=== PATIENT | male | born 1935 | race Caucasian/White ===

== ENCOUNTER 2019-07-10 19:05 | Inpatient (IN) | payer MEDICARE, BC ==
--- NOTE | 2019-07-10 19:14 | EDM.PDOC ---
ED HPI GENERAL MEDICAL PROBLEM - General Chief Complaint: Abdominal Pain Stated Complaint: ABD pain, weakness Time Seen by Provider: 07/10/19 19:07 Source of Information: Reports: Patient History Limitations: Reports: No Limitations - History of Present Illness INITIAL COMMENTS - FREE TEXT/NARRATIVE: This patient is an 84 year old male that presents to the ER. Patient is with son. I saw this patient in the clinic yesterday. Patient reports that about 2 1/ 2 weeks he has been having abdominal pain that comes and goes. Patient reports that when he has it, it makes him cry. Patient reports the pain last several minutes then resolved completely. The patient yesterday in clinic had ct abd/ pelvis with contrast and labs that were all unremarkable. Patient got Morphine/ Zofran and NS during his clinic visit and was pain free at discharge. We discussed a possible admit, but he was pain free. So, was discharged home. Patient returns today due to pain coming back again today and patient is requesting admit due to the pain that keeps coming. Duration: Week(s): (2 1/2), Intermittent Location: Reports: Abdomen Quality: Reports: Sharp Severity: Moderate Improves with: Reports: None Worsens with: Reports: None Associated Symptoms: Reports: Weakness (general). Denies: Confusion, Chest Pain , Cough, cough w sputum, Diaphoresis, Fever/Chills, Headaches, Loss of Appetite , Malaise, Nausea/Vomiting, Rash, Seizure, Shortness of Breath, Syncope Left Lower Abdominal Pain Score (Numeric/FACES): 5 - Related Data Allergies Allergy/AdvReac Type Severity Reaction Status Date / Time Penicillins Allergy Syncope Verified 07/10/19 19:15 Home Meds: Home Meds Multivitamin [Multivitamins] 1 tab PO DAILY 11/11/18 [History] Timolol [Betimol] 1 drop EYEBOTH ASDIRECTED 11/11/18 [History] gemfibroziL [Gemfibrozil] 600 mg PO DAILY 11/11/18 [History] Aspirin 325 mg PO DAILY 07/09/19 [History] Aspirin 325 mg PO DAILY 07/10/19 [History] Calcium Carbonate/Vitamin D3 [Calcium 600 + Vit D Tablet] 1 tab PO DAILY [History] Cholecalciferol (Vitamin D3) [Vitamin D3] 1 cap PO DAILY 07/10/19 [History] Ondansetron [Zofran ODT] 1 tab SL Q4H PRN 07/10/19 [History] fentaNYL [Duragesic] 50 mcg TRDERM Q72H 07/10/19 [History] Past Medical History Cardiovascular History: Reports: High Cholesterol - Past Surgical History GI Surgical History: Reports: Hernia, Inguinal Social & Family History - Caffeine Use Caffeine Use: Reports: Coffee - Living Situation & Occupation Living situation: Reports: , with Spouse Occupation: Retired ED ROS GENERAL - Review of Systems Review Of Systems: See Below Constitutional: Reports: No Symptoms HEENT: Reports: No Symptoms Respiratory: Reports: No Symptoms Cardiovascular: Reports: No Symptoms Endocrine: Reports: No Symptoms GI/Abdominal: Reports: Abdominal Pain. Denies: Nausea, Vomiting : Reports: No Symptoms Musculoskeletal: Reports: No Symptoms Skin: Reports: No Symptoms Neurological: Reports: No Symptoms Psychiatric: Reports: No Symptoms Hematologic/Lymphatic: Reports: No Symptoms Immunologic: Reports: No Symptoms ED EXAM, GI/ABD - Physical Exam Exam: See Below Exam Limited By: No Limitations General Appearance: Alert Course - Vital Signs Last Recorded V/S: Last Vital Signs Temp 97.0 F 07/10/19 20:00 Pulse 71 07/10/19 20:00 Resp 18 07/10/19 20:00 BP 124/61 07/10/19 20:00 Pulse Ox 94 L 07/10/19 20:00 - Orders/Labs/Meds Labs: Laboratory Tests 07/10/19 07/10/19 Range/Units 15:45 15:45 WBC 4.7 L (5.0-10.0) 10^3/uL RBC 4.23 L (4.50-6.00) 10^6/uL Hgb 13.1 L (14.0-18.0) g/dL Hct 39.9 L (40.0-54.0) % MCV 94.3 H (82.0-94.0) fL MCH 31.0 (27.0-32.0) pg MCHC 32.8 L (33.0-38.0) g/dL RDW Coeff of Cnidy 13.3 (11.0-15.0) % Plt Count 209 (150-400) 10^3/uL Neut % (Auto) 68.3 (35-85) % Lymph % (Auto) 18.3 (10-55) % [place] % (Auto) 9.4 (0-16) % Eos % (Auto) 3.4 (0-5) % Baso % (Auto) 0.6 (0-3) % Neut # (Auto) 3.21 (1.80-7.00) 10^3/uL Lymph # (Auto) 0.86 L (1.00-4.80) 10^3/uL [place] # (Auto) 0.44 (0.00-0.80) 10^3/uL Eos # (Auto) 0.16 (0.00-0.45) 10^3/uL Baso # (Auto) 0.03 10^3/uL Sodium 141 (136-145) mEq/L Potassium 4.5 (3.5-5.0) mEq/L Chloride 106 (98-106) mEq/L Carbon Dioxide 27 (21-32) mmol/L BUN 19 H (7-18) mg/dL Creatinine 0.8 (0.7-1.3) mg/dL Est Cr Clr Drug Dosing 60.98 mL/min Estimated GFR (MDRD) > 60 (>=60) mL/min Glucose 93 (75-99) mg/dL Calcium 9.2 (8.4-10.1) mg/dL Total Bilirubin 0.4 (0.0-1.0) mg/dL AST 23 (15-37) U/L ALT 22 (12-78) U/L Alkaline Phosphatase 85 (46-116) U/L C-Reactive Protein < 0.2 L (0.2-0.8) mg/dL Total Protein 6.4 (6.4-8.2) g/dL Albumin 3.5 (3.4-5.0) g/dL - Re-Assessments/Exams Free Text/Narrative Re-Assessment/Exam: 07/10/19 19:32 I will admit this patient, recommend possible gallbladder US on Friday when available. Allow Dr. Abernathy to see this patient and determine what other test if any are needed. Departure - Departure Time of Disposition: 19:08 Disposition: Refer to Observation Condition: Fair Clinical Impression: Abdominal pain Qualifiers: Abdominal location: generalized Qualified Code(s): R10.84 - Generalized abdominal pain - Discharge Information *PRESCRIPTION DRUG MONITORING PROGRAM REVIEWED*: Not Applicable *COPY OF PRESCRIPTION DRUG MONITORING REPORT IN PATIENT MARCUS: Not Applicable Sepsis Event Note - Focused Exam Vital Signs: Vital Signs Temp Pulse Resp BP Pulse Ox 07/10/19 19:07 96.5 F L 65 20 112/73 98 Date Exam was Performed: 07/10/19 Time Exam was Performed: 20:31 - Assessment/Plan Plan: PLEASE SEE RN NOTE FOR PFSH. PLEASE USE ER H&P ADMIT H&P.
[2019-07-10 19:30] LABS: CHLORIDE,CL 106 mEq/L (98-106); SODIUM,NA 141 mEq/L (136-145)
[2019-07-10] MEDS ORDERED: Docusate Sodium 100 MG Cap PO PRN (20:41)
[2019-07-10] MEDS ORDERED: Morphine 2 MG/ML Syringe IVPUSH PRN (20:41)
[2019-07-10] MEDS ORDERED: Timolol Maleate 0.5% Ophth Soln 5 ML Bottle EYEBOTH SCH (20:45)
[2019-07-10] MEDS ORDERED: fentaNYL 50 MCG/HR Transdermal Patch TRDERM SCH (21:00)
[2019-07-10] MEDS: Enoxaparin 40 MG/0.4 ML Syringe SUBCUT SCH (21:26)
[2019-07-11 07:17] LABS: CHLORIDE,CL 107 mEq/L (98-106); SODIUM,NA 142 mEq/L (136-145)
[2019-07-11] MEDS: Multivitamin Tab PO SCH (07:41)
[2019-07-11] MEDS: Calcium Carbonate/Vitamin D3 1250 MG-200 Unit Tab PO SCH (07:41)
[2019-07-11] MEDS: Cholecalciferol (Vitamin D3) 25 MCG Tab PO SCH (07:41)
[2019-07-11] MEDS: Aspirin 325 MG Tab.EC PO SCH (07:41)
[2019-07-11] MEDS: GEMFIBROZIL 600 MG PO SCH (07:42)
[2019-07-11] MEDS ORDERED: Gemfibrozil 600 MG Tab PO SCH (08:00)
[2019-07-11] MEDS ORDERED: Sodium Chloride 0.9% 500 ML IV ONE (10:30)
--- NOTE | 2019-07-11 10:42 | PCM.PN ---
- General Info Date of Service: 07/11/19 Functional Status: Reports: Tolerating Diet, Ambulating, Urinating - Review of Systems General: Reports: No Symptoms, Appetite (good appetite, eating well this morning breakfast) HEENT: Reports: No Symptoms Pulmonary: Reports: No Symptoms Cardiovascular: Reports: No Symptoms Gastrointestinal: Reports: Abdominal Pain (LLQ this morning, mild present now. Comes and goes severe per patient. Not severe since being here. ), Constipation (BM this morning, hard stool per patient. ). Denies: Difficulty Swallowing, Flatus, Nausea (reports his dry heaving is gone today.), Vomiting Genitourinary: Reports: No Symptoms Musculoskeletal: Reports: No Symptoms Skin: Reports: No Symptoms Neurological: Reports: No Symptoms Psychiatric: Reports: No Symptoms - Patient Data Vitals - Most Recent: Last Vital Signs Temp 97.8 F 07/11/19 07:40 Pulse 66 07/11/19 07:40 Resp 18 07/11/19 07:40 BP 124/62 07/11/19 07:40 Pulse Ox 96 07/11/19 07:40 Weight - Most Recent: 140 lb 12.8 oz Lab Results Last 24 Hours: Laboratory Results - last 24 hr 07/10/19 07/10/19 07/11/19 Range/Units 15:45 15:45 07:00 WBC 4.7 L 4.9 L (5.0-10.0) 10^3/uL RBC 4.23 L 4.23 L (4.50-6.00) 10^6/uL Hgb 13.1 L 13.0 L (14.0-18.0) g/dL Hct 39.9 L 40.0 (40.0-54.0) % MCV 94.3 H 94.6 H (82.0-94.0) fL MCH 31.0 30.7 (27.0-32.0) pg MCHC 32.8 L 32.5 L (33.0-38.0) g/dL RDW Coeff of Cindy 13.3 13.2 (11.0-15.0) % Plt Count 209 201 (150-400) 10^3/uL Neut % (Auto) 68.3 61.7 (35-85) % Lymph % (Auto) 18.3 22.0 (10-55) % [place] % (Auto) 9.4 12.0 (0-16) % Eos % (Auto) 3.4 3.9 (0-5) % Baso % (Auto) 0.6 0.4 (0-3) % Neut # (Auto) 3.21 3.04 (1.80-7.00) 10^3/uL Lymph # (Auto) 0.86 L 1.08 (1.00-4.80) 10^3/uL [place] # (Auto) 0.44 0.59 (0.00-0.80) 10^3/uL Eos # (Auto) 0.16 0.19 (0.00-0.45) 10^3/uL Baso # (Auto) 0.03 0.02 10^3/uL Sodium 141 (136-145) mEq/L Potassium 4.5 (3.5-5.0) mEq/L Chloride 106 (98-106) mEq/L Carbon Dioxide 27 (21-32) mmol/L BUN 19 H (7-18) mg/dL Creatinine 0.8 (0.7-1.3) mg/dL Est Cr Clr Drug Dosing 60.98 mL/min Estimated GFR (MDRD) > 60 (>=60) mL/min Glucose 93 (75-99) mg/dL Calcium 9.2 (8.4-10.1) mg/dL Total Bilirubin 0.4 (0.0-1.0) mg/dL AST 23 (15-37) U/L ALT 22 (12-78) U/L Alkaline Phosphatase 85 (46-116) U/L C-Reactive Protein < 0.2 L (0.2-0.8) mg/dL Total Protein 6.4 (6.4-8.2) g/dL Albumin 3.5 (3.4-5.0) g/dL 07/11/19 Range/Units 07:00 WBC (5.0-10.0) 10^3/uL RBC (4.50-6.00) 10^6/uL Hgb (14.0-18.0) g/dL Hct (40.0-54.0) % MCV (82.0-94.0) fL MCH (27.0-32.0) pg MCHC (33.0-38.0) g/dL RDW Coeff of Cindy (11.0-15.0) % Plt Count (150-400) 10^3/uL Neut % (Auto) (35-85) % Lymph % (Auto) (10-55) % [place] % (Auto) (0-16) % Eos % (Auto) (0-5) % Baso % (Auto) (0-3) % Neut # (Auto) (1.80-7.00) 10^3/uL Lymph # (Auto) (1.00-4.80) 10^3/uL [place] # (Auto) (0.00-0.80) 10^3/uL Eos # (Auto) (0.00-0.45) 10^3/uL Baso # (Auto) 10^3/uL Sodium 142 (136-145) mEq/L Potassium 4.5 (3.5-5.0) mEq/L Chloride 107 H (98-106) mEq/L Carbon Dioxide 26 (21-32) mmol/L BUN 19 H (7-18) mg/dL Creatinine 0.9 (0.7-1.3) mg/dL Est Cr Clr Drug Dosing 54.21 mL/min Estimated GFR (MDRD) > 60 (>=60) mL/min Glucose 105 H (75-99) mg/dL Calcium 8.6 (8.4-10.1) mg/dL Total Bilirubin (0.0-1.0) mg/dL AST (15-37) U/L ALT (12-78) U/L Alkaline Phosphatase (46-116) U/L C-Reactive Protein < 0.2 L (0.2-0.8) mg/dL Total Protein (6.4-8.2) g/dL Albumin (3.4-5.0) g/dL Med Orders - Current: Current Medications Aspirin (Ecotrin) 325 mg PO DAILY [facility] Last Admin: 07/11/19 07:41 Dose: 325 mg Calcium Carbonate (Calcium Carbonate/Vitamin D 1250 Mg-200 Unit) 1 tab PO DAILY [facility] Last Admin: 07/11/19 07:41 Dose: 1 tab Cholecalciferol (Vitamin D3) 25 mcg PO DAILY [facility] Last Admin: 07/11/19 07:41 Dose: 25 mcg Docusate Sodium (Colace) 100 mg PO BID PRN PRN Reason: Constipation Enoxaparin Sodium (Lovenox) 40 mg SUBCUT Q24H [facility] Last Admin: 07/10/19 21:26 Dose: 40 mg Fentanyl (Duragesic) 50 mcg TRDERM Q72H [facility] Gemfibrozil (Lopid) 600 mg PO DAILY [facility] Last Admin: 07/11/19 07:42 Dose: 600 mg Sodium Chloride (Normal Saline) 500 mls @ 500 mls/hr IV ONETIME ONE Stop: 07/11/19 11:29 Morphine Sulfate (Morphine) 2 mg IVPUSH Q2H PRN PRN Reason: Pain (severe 7-10) Multivitamins/Minerals/Vitamin C (Tab-A-John [place]) 1 tab PO DAILY [facility] Last Admin: 07/11/19 07:41 Dose: 1 tab Ondansetron HCl (Zofran) 4 mg IV Q6H PRN PRN Reason: Nausea/Vomiting Simethicone (Simethicone) 80 mg PO Q6H PRN PRN Reason: Abdominal Pain Timolol Maleate (Timoptic 0.5% Ophth Soln) 0 ml EYEBOTH ASDIRECTED [facility] Discontinued Medications Fentanyl (Duragesic) 50 mcg TRDERM Q72H [facility] Last Admin: 07/10/19 21:26 Dose: Not Given Gemfibrozil (Lopid) 600 mg PO DAILY [facility] - Exam General: Alert, Oriented, Cooperative, No Acute Distress Lungs: Clear to Auscultation, Normal Respiratory Effort Cardiovascular: Regular Rate, Regular Rhythm GI/Abdominal Exam: Soft, Tender (mild LLQ), Abnormal Bowel Sounds (Hyperactive) Back Exam: Normal Inspection, Full Range of Motion Extremities: Normal Inspection, No Pedal Edema, Normal Capillary Refill Peripheral Pulses: 2+: Radial (L), Radial (R), Posterior Tibial (L), Posterior Tibial (R) Skin: Warm, Dry, Intact Neurological: No New Focal Deficit Psy/Mental Status: Alert, Normal Affect, Normal Mood Sepsis Event Note - Evaluation Sepsis Screening Result: No Definite Risk - Focused Exam Vital Signs: Vital Signs Temp Pulse Resp BP Pulse Ox 07/11/19 07:40 97.8 F 66 18 124/62 96 07/11/19 04:00 97 F 82 20 157/74 H 94 L 07/11/19 00:00 97 F 65 18 123/70 94 L Date Exam was Performed: 07/12/19 Time Exam was Performed: 07:48 - Problem List Review Problem List Initiated/Reviewed/Updated: Yes - My Orders Last 24 Hours: My Active Orders 07/10/19 20:32 Resuscitation Status Routine 07/10/19 20:41 Patient Status [ADT] Routine Ambulate [RC] ASDIRECTED Antiembolic Devices [RC] 1000,2200 Notify Provider Vital Signs [RC] ASDIRECTED Oxygen Therapy [RC] .PRN Up With Assistance [RC] ASDIRECTED VTE/DVT Education [RC] PER UNIT ROUTINE Vital Signs [RC] 0000,0400,0800,1200,1600,2000 Docusate Sodium [Colace] 100 mg PO BID PRN Morphine 2 mg IVPUSH Q2H PRN Ondansetron [Zofran] 4 mg IV Q6H PRN Simethicone 80 mg PO Q6H PRN Antiembolic Hose [OM.PC] Per Unit Routine 07/10/19 20:45 Timolol Maleate [Timoptic 0.5% Ophth Soln] 0 ml EYEBOTH ASDIRECTED 07/10/19 21:00 Enoxaparin [Lovenox] 40 mg SUBCUT Q24H 07/11/19 08:00 Aspirin [Ecotrin] 325 mg PO DAILY Calcium Carbonate/Vitamin D3 [Calcium Carbonate/Vitamin D 1250 MG-200 Unit] 1 tab PO DAILY Cholecalciferol (Vitamin D3) [Vitamin D3] 25 mcg PO DAILY Multivitamins [Tab-A-John [place]] 1 tab PO DAILY gemfibroziL [Lopid] 600 mg PO DAILY 07/11/19 10:30 Sodium Chloride 0.9% [Normal Saline] 500 ml IV ONETIME 07/12/19 05:00 BASIC METABOLIC PANEL,BMP [CHEM] DAILY C-REACTIVE PROTEIN [CHEM] DAILY CBC WITH AUTO DIFF [HEME] DAILY 07/12/19 08:00 Gallbladder [Abdomen Ltd] [US] Routine 07/12/19 09:00 fentaNYL [Duragesic] 50 mcg TRDERM Q72H - Plan Plan:: This patient was admitted due to abdominal pain at home. Son and patient reports that he cries with severe abdominal pain that comes and goes. The patient reports that he has dry heaves. CT did show no acute changes. Gallbladder normal. No obstructive patterns. Diverticulosis, but no Diverticulitis. He has no fever, no wbc elevation, no crp elevation. Patient this morning reports that he has mild LLQ abdominal pain. He is unable to describe how it feels. He reports that he did have a BM this morning that he struggled to get out and was hard. The patient reports that he is scared to go home because of his abdominal pain. The patient son reports the patient drinks apple juice all the time. The patient does report that the pain in his abdomen is usually shortly after drinking apple juice or with eating. I have added a stool softner to this patient, Gas-X. I have also added NS 500ml Bolus due to mild 107 CH and mild BUN elevation. I have also made note the patient is to not have any apple juice. Will continue his admit. PCP to see tomorrow. Patient does live at home, son works a lot, but is involved in the patient plan of care and has been here with him almost the entire visit. Patient today was discussing possibly assisted placement with RN.
[2019-07-11] MEDS: Simethicone 80 MG Tab.Chew PO PRN (10:44)
[2019-07-11] MEDS: Docusate Sodium 100 MG Cap PO SCH (19:43)
[2019-07-11] MEDS: Enoxaparin 40 MG/0.4 ML Syringe SUBCUT SCH (20:37)
[2019-07-12 07:48] LABS: CHLORIDE,CL 106 mEq/L (98-106); SODIUM,NA 139 mEq/L (136-145)
[2019-07-12] MEDS: GEMFIBROZIL 600 MG PO SCH (07:48)
[2019-07-12] MEDS: Aspirin 325 MG Tab.EC PO SCH (07:48)
[2019-07-12] MEDS: Cholecalciferol (Vitamin D3) 25 MCG Tab PO SCH (07:48)
[2019-07-12] MEDS: Docusate Sodium 100 MG Cap PO SCH ×2 (07:48→19:32)
[2019-07-12] MEDS: Calcium Carbonate/Vitamin D3 1250 MG-200 Unit Tab PO SCH (07:48)
[2019-07-12] MEDS: Multivitamin Tab PO SCH (07:48)
[2019-07-12] MEDS: Timolol Maleate 0.5% Ophth Soln 5 ML Bottle EYEBOTH SCH (07:49)
[2019-07-12] MEDS ORDERED: FENTANYL 50 MCG/HR TRDERM SCH (09:00)
--- NOTE | 2019-07-12 09:02 | PCM.PN ---
- General Info Date of Service: 07/12/19 Admission Dx/Problem (Free Text): Abdominal Pain Functional Status: Reports: Tolerating Diet, Ambulating. Denies: Pain Controlled (patient states having more discomfort this am now after eating, especially on the left side) - Review of Systems General: Reports: Weakness, Fatigue, Malaise HEENT: Reports: No Symptoms Pulmonary: Reports: Cough. Denies: Shortness of Breath Cardiovascular: Denies: Chest Pain, Lightheadedness Gastrointestinal: Reports: Abdominal Pain. Denies: Nausea, Vomiting Genitourinary: Reports: No Symptoms Musculoskeletal: Reports: No Symptoms Skin: Reports: No Symptoms Neurological: Reports: Weakness - Patient Data Vitals - Most Recent: Last Vital Signs Temp 97.8 F 07/12/19 07:47 Pulse 69 07/12/19 07:47 Resp 18 07/12/19 07:47 BP 146/65 H 07/12/19 07:47 Pulse Ox 95 07/12/19 07:47 Weight - Most Recent: 140 lb 12.8 oz Lab Results Last 24 Hours: Laboratory Results - last 24 hr 07/12/19 07/12/19 Range/Units 07:05 07:05 WBC 3.8 L (5.0-10.0) 10^3/uL RBC 4.26 L (4.50-6.00) 10^6/uL Hgb 13.0 L (14.0-18.0) g/dL Hct 39.8 L (40.0-54.0) % MCV 93.4 (82.0-94.0) fL MCH 30.5 (27.0-32.0) pg MCHC 32.7 L (33.0-38.0) g/dL RDW Coeff of Cindy 13.1 (11.0-15.0) % Plt Count 201 (150-400) 10^3/uL Neut % (Auto) 60.2 (35-85) % Lymph % (Auto) 23.5 (10-55) % [place] % (Auto) 10.0 (0-16) % Eos % (Auto) 5.8 H (0-5) % Baso % (Auto) 0.5 (0-3) % Neut # (Auto) 2.28 (1.80-7.00) 10^3/uL Lymph # (Auto) 0.89 L (1.00-4.80) 10^3/uL [place] # (Auto) 0.38 (0.00-0.80) 10^3/uL Eos # (Auto) 0.22 (0.00-0.45) 10^3/uL Baso # (Auto) 0.02 10^3/uL Sodium 139 (136-145) mEq/L Potassium 4.6 (3.5-5.0) mEq/L Chloride 106 (98-106) mEq/L Carbon Dioxide 26 (21-32) mmol/L BUN 17 (7-18) mg/dL Creatinine 0.7 (0.7-1.3) mg/dL Est Cr Clr Drug Dosing 69.69 mL/min Estimated GFR (MDRD) > 60 (>=60) mL/min Glucose 100 H (75-99) mg/dL Calcium 8.4 (8.4-10.1) mg/dL C-Reactive Protein < 0.2 L (0.2-0.8) mg/dL Med Orders - Current: Current Medications Aspirin (Ecotrin) 325 mg PO DAILY [facility] Last Admin: 07/12/19 07:48 Dose: 325 mg Calcium Carbonate (Calcium Carbonate/Vitamin D 1250 Mg-200 Unit) 1 tab PO DAILY [facility] Last Admin: 07/12/19 07:48 Dose: 1 tab Cholecalciferol (Vitamin D3) 25 mcg PO DAILY [facility] Last Admin: 07/12/19 07:48 Dose: 25 mcg Docusate Sodium (Colace) 100 mg PO BID [facility] Last Admin: 07/12/19 07:48 Dose: 100 mg Enoxaparin Sodium (Lovenox) 40 mg SUBCUT Q24H [facility] Last Admin: 07/11/19 20:37 Dose: 40 mg Fentanyl (Duragesic) 50 mcg TRDERM Q72H [facility] Gemfibrozil (Lopid) 600 mg PO DAILY [facility] Last Admin: 07/12/19 07:48 Dose: 600 mg Morphine Sulfate (Morphine) 2 mg IVPUSH Q2H PRN PRN Reason: Pain (severe 7-10) Multivitamins/Minerals/Vitamin C (Tab-A-[place]) 1 tab PO DAILY [facility] Last Admin: 07/12/19 07:48 Dose: 1 tab Ondansetron HCl (Zofran) 4 mg IV Q6H PRN PRN Reason: Nausea/Vomiting Simethicone (Simethicone) 80 mg PO Q6H PRN PRN Reason: Abdominal Pain Last Admin: 07/11/19 10:44 Dose: 80 mg Timolol Maleate (Timoptic 0.5% Ophth Soln) 0 ml EYEBOTH DAILY [facility] Last Admin: 07/12/19 07:49 Dose: Not Given Discontinued Medications Docusate Sodium (Colace) 100 mg PO BID PRN PRN Reason: Constipation Last Admin: 07/11/19 10:43 Dose: 100 mg Fentanyl (Duragesic) 50 mcg TRDERM Q72H [facility] Last Admin: 07/10/19 21:26 Dose: Not Given Gemfibrozil (Lopid) 600 mg PO DAILY [facility] Sodium Chloride (Normal Saline) 500 mls @ 500 mls/hr IV ONETIME ONE Stop: 07/11/19 11:29 Last Admin: 07/11/19 10:42 Dose: 500 mls/hr Timolol Maleate (Timoptic 0.5% Ophth Soln) 0 ml EYEBOTH ASDIRECTED [facility] - Exam General: Alert, Oriented HEENT: Mucous Membr. Moist/[place] Neck: Supple Lungs: Clear to Auscultation, Normal Respiratory Effort Cardiovascular: Regular Rate, Regular Rhythm GI/Abdominal Exam: Normal Bowel Sounds, Soft, Tender (left upper and lower quadrants) Extremities: Normal Inspection, No Pedal Edema Skin: Warm, Dry Neurological: No New Focal Deficit Sepsis Event Note - Evaluation Sepsis Screening Result: No Definite Risk - Focused Exam Vital Signs: Vital Signs Temp Pulse Resp BP Pulse Ox 07/12/19 07:47 97.8 F 69 18 146/65 H 95 Date Exam was Performed: 07/12/19 Time Exam was Performed: 08:56 - Problem List & Annotations (1) Abdominal pain SNOMED Code(s): 78203822 Code(s): R10.9 - UNSPECIFIED ABDOMINAL PAIN Status: Acute Priority: High Current Visit: Yes Qualifiers: Abdominal location: generalized Qualified Code(s): R10.84 - Generalized abdominal pain - Problem List Review Problem List Initiated/Reviewed/Updated: Yes - My Orders Last 24 Hours: My Active Orders 07/12/19 08:19 Consult to Case Management/[employer] [CONS] Routine 07/12/19 08:51 Patient Status [ADT] Routine - Assessment Assessment:: Abdominal Pain - Plan Plan:: This patient was admitted due to abdominal pain at home. Son and patient reports that he cries with severe abdominal pain that comes and goes. The patient reports that he has dry heaves. CT did show no acute changes. Gallbladder normal. No obstructive patterns. Diverticulosis, but no Diverticulitis. He has no fever, no wbc elevation, no crp elevation. Patient this morning reports that he has mild LLQ abdominal pain. He is unable to describe how it feels. He reports that he did have a BM this morning that he struggled to get out and was hard. The patient reports that he is scared to go home because of his abdominal pain. The patient son reports the patient drinks apple juice all the time. The patient does report that the pain in his abdomen is usually shortly after drinking apple juice or with eating. I have added a stool softner to this patient, Gas-X. I have also added NS 500ml Bolus due to mild 107 CH and mild BUN elevation. I have also made note the patient is to not have any apple juice. Will continue his admit. PCP to see tomorrow. Patient does live at home, son works a lot, but is involved in the patient plan of care and has been here with him almost the entire visit. Patient today was discussing possibly mcc placement with RN. 07-12-2019 Patient admits to increased abdominal pain after eating this morning. Denies being always correlated with eating. No nausea. No vomiting. Does still complain of pain to the left upper and lower quadrant region. Is tender with palpation. Labs remain normal this am, WBC 3.8, CRP negative. Electrolytes, kidney function all normal. Did have CT scan this weekend which was normal as well. Afebrile Will transfer to acute. Plan for tentative EGD tomorrow. Start IV Protonix. Social service consult for vulnerable adult. Physical therapy for strengthening.
[2019-07-12] MEDS: Gemfibrozil 600 MG Tab PO SCH (10:04)
[2019-07-12] MEDS: Pantoprazole 40 MG Vial IVPUSH SCH (10:09)
[2019-07-12] MEDS: Simethicone 80 MG Tab.Chew PO PRN ×2 (10:59→17:27)
[2019-07-12] MEDS: Enoxaparin 40 MG/0.4 ML Syringe SUBCUT SCH (21:20)
[2019-07-13] MEDS ORDERED: Lactated Ringers 1,000 ML IV SCH (08:00)
[2019-07-13] MEDS ORDERED: Benzocaine 20% Oral Spray 59.2 ML Canister MUCMEM ONE ×2 (08:57→09:10)
[2019-07-13] MEDS ORDERED: Midazolam 1 MG/ML 2 ML SDV IV ONE (09:08)
[2019-07-13] MEDS ORDERED: FENTANYL 50 MCG/HR TRDERM SCH (10:00)
[2019-07-13] MEDS ORDERED: fentaNYL 50 MCG/HR Transdermal Patch TRDERM SCH (10:00)
[2019-07-13] MEDS: Pantoprazole 40 MG Vial IVPUSH SCH (10:02)
[2019-07-13] MEDS ORDERED: fentaNYL 25 MCG/HR Transdermal Patch TRDERM SCH (10:30)
--- NOTE | 2019-07-13 11:38 | OR ---
DATE OF OPERATION: 07/13/2019 PREOPERATIVE DIAGNOSIS: CHRONIC ABDOMINAL PAIN. POSTOPERATIVE DIAGNOSIS: CHRONIC ABDOMINAL PAIN. SURGEON: Alvin Abernathy MD PROCEDURE: DIAGNOSTIC ESOPHAGOGASTRODUODENOSCOPY. ANESTHESIA: Conscious sedation with 2 mg of Versed with continuous O2 saturation monitoring and nurse assist. COMPLICATIONS: None. SPECIMEN: None. FINDINGS: Normal EGD to duodenal bulb. RECOMMENDATIONS: Ongoing medical followup in the hospital. INDICATIONS: The patient admitted to the hospital for bloating, abdominal pain, and fullness with eating. CT scan is negative. We elected to proceed with diagnostic EGD. DESCRIPTION OF PROCEDURE: The patient was prepped and draped, placed in left lateral decubitus position. A lubricated Olympus gastroscope was inserted over a bit. The patient had an extremely strong gag reflex. Unfortunately, his blood pressures drop with only 2 of Versed. He was quite sedated, but we did re- spray his throat while we intubated into the esophagus. The esophageal lining appears benign in its entire course. Minimal small hernia may be present. Z- line appeared to be clean and sharp at around 39 cm. We got into the stomach and were just through the pylorus, and the patient started getting tachycardic and dropping his saturations slightly. Good look at the duodenal bulb was benign. No gross abnormalities were seen in the antrum or fundus of the stomach. Retroflexion was not accomplished due to patient coughing and gagging. We elected to terminate the procedure at that point. The scope was removed safely, and there were no complications. The patient was stable in the recovery room. HILARIA/ELAINE /[id number]
[2019-07-13] MEDS: Cholecalciferol (Vitamin D3) 25 MCG Tab PO SCH (12:05)
[2019-07-13] MEDS: Calcium Carbonate/Vitamin D3 1250 MG-200 Unit Tab PO SCH (12:05)
[2019-07-13] MEDS: Ondansetron 4 MG/2 ML SDV IV PRN (12:05)
[2019-07-13] MEDS: Aspirin 325 MG Tab.EC PO SCH (12:06)
[2019-07-13] MEDS: Multivitamin Tab PO SCH (12:06)
[2019-07-13] MEDS: Gemfibrozil 600 MG Tab PO SCH (12:06)
[2019-07-13] MEDS: Docusate Sodium 100 MG Cap PO SCH ×2 (12:09→19:31)
[2019-07-13] MEDS: Timolol Maleate 0.5% Ophth Soln 5 ML Bottle EYEBOTH SCH (12:13)
--- NOTE | 2019-07-13 13:36 | PCM.PN ---
- General Info Date of Service: 07/13/19 Admission Dx/Problem (Free Text): Abdominal Pain Functional Status: Reports: Pain Controlled, Ambulating - Review of Systems General: Reports: Weakness, Fatigue, Malaise HEENT: Reports: No Symptoms Pulmonary: Denies: Shortness of Breath, Cough Cardiovascular: Denies: Chest Pain, Lightheadedness Gastrointestinal: Reports: Abdominal Pain. Denies: Nausea, Vomiting Genitourinary: Reports: No Symptoms Musculoskeletal: Reports: No Symptoms Skin: Reports: No Symptoms Neurological: Reports: Weakness - Patient Data Vitals - Most Recent: Last Vital Signs Temp 97.5 F 07/13/19 09:57 Pulse 66 07/13/19 09:57 Resp 18 07/13/19 09:57 BP 121/63 07/13/19 09:57 Pulse Ox 100 07/13/19 09:57 Weight - Most Recent: 140 lb 12.8 oz Med Orders - Current: Current Medications Aspirin (Ecotrin) 325 mg PO DAILY [facility] Last Admin: 07/13/19 12:06 Dose: 325 mg Calcium Carbonate (Calcium Carbonate/Vitamin D 1250 Mg-200 Unit) 1 tab PO DAILY [facility] Last Admin: 07/13/19 12:05 Dose: 1 tab Cholecalciferol (Vitamin D3) 25 mcg PO DAILY [facility] Last Admin: 07/13/19 12:05 Dose: 25 mcg Docusate Sodium (Colace) 100 mg PO BID [facility] Last Admin: 07/13/19 12:09 Dose: 100 mg Enoxaparin Sodium (Lovenox) 40 mg SUBCUT Q24H [facility] Last Admin: 07/12/19 21:20 Dose: Not Given Fentanyl (Duragesic) 50 mcg TRDERM Q72H [facility] Last Admin: 07/13/19 10:25 Dose: 50 mcg Gemfibrozil (Lopid) 600 mg PO DAILY [facility] Last Admin: 07/13/19 12:06 Dose: 600 mg Morphine Sulfate (Morphine) 2 mg IVPUSH Q2H PRN PRN Reason: Pain (severe 7-10) Multivitamins/Minerals/Vitamin C (Tab-A-[place]) 1 tab PO DAILY [facility] Last Admin: 07/13/19 12:06 Dose: 1 tab Ondansetron HCl (Zofran) 4 mg IV Q6H PRN PRN Reason: Nausea/Vomiting Last Admin: 07/13/19 12:05 Dose: 4 mg Pantoprazole Sodium (Protonix Iv) 40 mg IVPUSH Q24H [facility] Last Admin: 07/13/19 10:02 Dose: 40 mg Simethicone (Simethicone) 80 mg PO Q6H PRN PRN Reason: Abdominal Pain Last Admin: 07/12/19 17:27 Dose: 80 mg Timolol Maleate (Timoptic 0.5% Ophth Soln) 0 ml EYEBOTH DAILY [facility] Last Admin: 07/13/19 12:13 Dose: 1 drop Discontinued Medications Benzocaine (Hurricaine 20% [place]) 1 ml MUCMEM .STK-MED ONE Stop: 07/13/19 08:58 Last Admin: 07/13/19 08:57 Dose: 1 ml Benzocaine (Hurricaine 20% [place]) 1 ml MUCMEM .STK-MED ONE Stop: 07/13/19 09:11 Last Admin: 07/13/19 09:10 Dose: 1 ml Docusate Sodium (Colace) 100 mg PO BID PRN PRN Reason: Constipation Last Admin: 07/11/19 10:43 Dose: 100 mg Fentanyl (Duragesic) 50 mcg TRDERM Q72H [facility] Last Admin: 07/10/19 21:26 Dose: Not Given Fentanyl (Duragesic) 50 mcg TRDERM Q72H [facility] Last Admin: 07/12/19 10:59 Dose: Not Given Fentanyl (Duragesic) 50 mcg TRDERM Q72H [facility] Last Admin: 07/13/19 12:15 Dose: Not Given Fentanyl (Duragesic) 50 mcg TRDERM Q72H [facility] Last Admin: 07/13/19 12:14 Dose: Not Given Gemfibrozil (Lopid) 600 mg PO DAILY [facility] Gemfibrozil (Lopid) 600 mg PO DAILY [facility] Last Admin: 07/12/19 07:48 Dose: 600 mg Sodium Chloride (Normal Saline) 500 mls @ 500 mls/hr IV ONETIME ONE Stop: 07/11/19 11:29 Last Admin: 07/11/19 10:42 Dose: 500 mls/hr Lactated Ringer's (Ringers, Lactated) 1,000 mls @ 50 mls/hr IV ASDIRECTED [facility] Stop: 07/14/19 03:59 Last Admin: 07/13/19 08:30 Dose: 50 mls/hr Midazolam HCl (Versed 1 Mg/Ml) 2 mg IV .STK-MED ONE Stop: 07/13/19 09:09 Last Admin: 07/13/19 09:08 Dose: 2 mg Timolol Maleate (Timoptic 0.5% Ophth Soln) 0 ml EYEBOTH ASDIRECTED [facility] - Exam General: Alert, Oriented HEENT: Mucous Membr. Moist/[place] Neck: Supple Lungs: Clear to Auscultation, Normal Respiratory Effort Cardiovascular: Regular Rate, Regular Rhythm GI/Abdominal Exam: Normal Bowel Sounds, Soft, Tender (left upper and lower quadrants) Extremities: Normal Inspection, No Pedal Edema Skin: Warm, Dry Neurological: No New Focal Deficit Sepsis Event Note - Evaluation Sepsis Screening Result: No Definite Risk - Focused Exam Vital Signs: Vital Signs Temp Pulse Resp BP Pulse Ox 07/13/19 09:57 97.5 F 66 18 121/63 100 07/13/19 09:27 97.7 F 78 18 137/65 95 07/13/19 09:20 76 20 118/61 96 07/13/19 09:10 90 20 141/65 H 94 L 07/13/19 09:05 66 20 131/57 L 95 07/13/19 09:00 71 20 150/67 H 97 07/13/19 08:55 67 18 167/71 H 96 07/13/19 08:00 97.7 F 65 16 133/61 95 Date Exam was Performed: 07/13/19 Time Exam was Performed: 13:29 - Problem List & Annotations (1) Abdominal pain SNOMED Code(s): 05753092 Code(s): R10.9 - UNSPECIFIED ABDOMINAL PAIN Status: Acute Priority: High Current Visit: Yes Qualifiers: Abdominal location: generalized Qualified Code(s): R10.84 - Generalized abdominal pain - Problem List Review Problem List Initiated/Reviewed/Updated: Yes - My Orders Last 24 Hours: My Active Orders 07/12/19 17:40 Consult to Physician [CONS] Routine 07/12/19 17:41 Notify Provider Consults [RC] .PRN - Assessment Assessment:: Abdominal Pain - Plan Plan:: This patient was admitted due to abdominal pain at home. Son and patient reports that he cries with severe abdominal pain that comes and goes. The patient reports that he has dry heaves. CT did show no acute changes. Gallbladder normal. No obstructive patterns. Diverticulosis, but no Diverticulitis. He has no fever, no wbc elevation, no crp elevation. Patient this morning reports that he has mild LLQ abdominal pain. He is unable to describe how it feels. He reports that he did have a BM this morning that he struggled to get out and was hard. The patient reports that he is scared to go home because of his abdominal pain. The patient son reports the patient drinks apple juice all the time. The patient does report that the pain in his abdomen is usually shortly after drinking apple juice or with eating. I have added a stool softner to this patient, Gas-X. I have also added NS 500ml Bolus due to mild 107 CH and mild BUN elevation. I have also made note the patient is to not have any apple juice. Will continue his admit. PCP to see tomorrow. Patient does live at home, son works a lot, but is involved in the patient plan of care and has been here with him almost the entire visit. Patient today was discussing possibly correction placement with RN. 07-12-2019 Patient admits to increased abdominal pain after eating this morning. Denies being always correlated with eating. No nausea. No vomiting. Does still complain of pain to the left upper and lower quadrant region. Is tender with palpation. Labs remain normal this am, WBC 3.8, CRP negative. Electrolytes, kidney function all normal. Did have CT scan this weekend which was normal as well. Afebrile Will transfer to acute. Plan for tentative EGD tomorrow. Start IV Protonix. Social service consult for vulnerable adult. Physical therapy for strengthening. 07-13-2019 Patient resting quietly this am. Is NPO for EGD this am. Admits to still having intermittent pain in the left side of his abdomen. Noted more burning with eating yesterday. Has had normal CT scan done other than a small hernia in the left lower quadrant, ultrasound was normal. Does feel that when he takes the Gas-X it helps. No nausea this am. No diarrhea. Afebrile. Labs have been normal. Will proceed with EGD. Continue IV Protonix. fiscal services manager has discussed possible temporary correction placement for the patient for strengthening. Continue PT at present.
[2019-07-13] MEDS: Enoxaparin 40 MG/0.4 ML Syringe SUBCUT SCH (21:13)
[2019-07-14] MEDS: Cholecalciferol (Vitamin D3) 25 MCG Tab PO SCH (07:16)
[2019-07-14] MEDS: Aspirin 325 MG Tab.EC PO SCH (07:16)
[2019-07-14] MEDS: Docusate Sodium 100 MG Cap PO SCH ×2 (07:16→20:03)
[2019-07-14] MEDS: Calcium Carbonate/Vitamin D3 1250 MG-200 Unit Tab PO SCH (07:16)
[2019-07-14] MEDS: Gemfibrozil 600 MG Tab PO SCH (07:16)
[2019-07-14] MEDS: Timolol Maleate 0.5% Ophth Soln 5 ML Bottle EYEBOTH SCH (07:17)
[2019-07-14] MEDS: Multivitamin Tab PO SCH (07:17)
[2019-07-14] MEDS: Simethicone 80 MG Tab.Chew PO PRN (08:03)
[2019-07-14] MEDS: Pantoprazole 40 MG Vial IVPUSH SCH (08:24)
[2019-07-14] MEDS: Ondansetron 4 MG Tab.DIS PO PRN (10:30)
[2019-07-14] MEDS: Polyethylene Glycol 3350 Powder 17 GM Packet PO SCH (13:50)
[2019-07-14] MEDS: Ondansetron 4 MG/2 ML SDV IV PRN (14:26)
[2019-07-14] MEDS ORDERED: Calcium Carbonate 500 MG Tab.Chew PO PRN (14:28)
--- NOTE | 2019-07-14 18:40 | PCM.PN ---
- General Info Date of Service: 07/14/19 Admission Dx/Problem (Free Text): Abdominal Pain Functional Status: Reports: Ambulating, Urinating. Denies: Pain Controlled, Tolerating Diet - Review of Systems General: Reports: Weakness, Fatigue, Malaise HEENT: Reports: Rhinitis Pulmonary: Denies: Shortness of Breath, Cough Cardiovascular: Denies: Chest Pain, Edema, Lightheadedness Gastrointestinal: Reports: Abdominal Pain, Nausea. Denies: Vomiting Genitourinary: Reports: No Symptoms Musculoskeletal: Reports: No Symptoms Skin: Reports: No Symptoms Psychiatric: Reports: Anxiety - Patient Data Vitals - Most Recent: Last Vital Signs Temp 98.2 F 07/14/19 16:00 Pulse 72 07/14/19 16:00 Resp 16 07/14/19 16:00 BP 128/62 07/14/19 16:00 Pulse Ox 97 07/14/19 16:00 Weight - Most Recent: 140 lb 12.8 oz I&O - Last 24 Hours: Intake & Output 07/14/19 07/14/19 07/14/19 06:59 14:59 22:59 Output Total 200 Balance -200 Med Orders - Current: Current Medications Aspirin (Ecotrin) 325 mg PO DAILY [facility] Last Admin: 07/14/19 07:16 Dose: 325 mg Calcium Carbonate (Calcium Carbonate/Vitamin D 1250 Mg-200 Unit) 1 tab PO DAILY [facility] Last Admin: 07/14/19 07:16 Dose: 1 tab Calcium Carbonate/Glycine (Tums) 1,000 mg PO QID PRN PRN Reason: Dyspepsia Last Admin: 07/14/19 14:41 Dose: 1,000 mg Cholecalciferol (Vitamin D3) 25 mcg PO DAILY [facility] Last Admin: 07/14/19 07:16 Dose: 25 mcg Docusate Sodium (Colace) 100 mg PO BID [facility] Last Admin: 07/14/19 07:16 Dose: 100 mg Enoxaparin Sodium (Lovenox) 40 mg SUBCUT Q24H [facility] Last Admin: 07/13/19 21:13 Dose: 40 mg Fentanyl (Duragesic) 50 mcg TRDERM Q72H [facility] Last Admin: 07/13/19 10:25 Dose: 50 mcg Gemfibrozil (Lopid) 600 mg PO DAILY [facility] Last Admin: 07/14/19 07:16 Dose: 600 mg Morphine Sulfate (Morphine) 2 mg IVPUSH Q2H PRN PRN Reason: Pain (severe 7-10) Multivitamins/Minerals/Vitamin C (Tab-A-[place]) 1 tab PO DAILY [facility] Last Admin: 07/14/19 07:17 Dose: 1 tab Ondansetron HCl (Zofran) 4 mg IV Q6H PRN PRN Reason: Nausea/Vomiting Last Admin: 07/14/19 14:26 Dose: 4 mg Ondansetron HCl (Zofran Odt) 4 mg PO Q4H PRN PRN Reason: Nausea/Vomiting Last Admin: 07/14/19 10:30 Dose: 4 mg Pantoprazole Sodium (Protonix Iv) 40 mg IVPUSH Q24H [facility] Last Admin: 07/14/19 08:24 Dose: 40 mg Polyethylene Glycol (Miralax) 17 gm PO DAILY [facility] Last Admin: 07/14/19 13:50 Dose: 17 gm Simethicone (Simethicone) 80 mg PO Q6H PRN PRN Reason: Abdominal Pain Last Admin: 07/14/19 08:03 Dose: 80 mg Timolol Maleate (Timoptic 0.5% Ophth Soln) 0 ml EYEBOTH DAILY [facility] Last Admin: 07/14/19 07:17 Dose: 1 drop Discontinued Medications Benzocaine (Hurricaine 20% [place]) 1 ml MUCMEM .STK-MED ONE Stop: 07/13/19 08:58 Last Admin: 07/13/19 08:57 Dose: 1 ml Benzocaine (Hurricaine 20% [place]) 1 ml MUCMEM .STK-MED ONE Stop: 07/13/19 09:11 Last Admin: 07/13/19 09:10 Dose: 1 ml Docusate Sodium (Colace) 100 mg PO BID PRN PRN Reason: Constipation Last Admin: 07/11/19 10:43 Dose: 100 mg Fentanyl (Duragesic) 50 mcg TRDERM Q72H [facility] Last Admin: 07/10/19 21:26 Dose: Not Given Fentanyl (Duragesic) 50 mcg TRDERM Q72H [facility] Last Admin: 07/12/19 10:59 Dose: Not Given Fentanyl (Duragesic) 50 mcg TRDERM Q72H [facility] Last Admin: 07/13/19 12:15 Dose: Not Given Fentanyl (Duragesic) 50 mcg TRDERM Q72H [facility] Last Admin: 07/13/19 12:14 Dose: Not Given Gemfibrozil (Lopid) 600 mg PO DAILY [facility] Gemfibrozil (Lopid) 600 mg PO DAILY [facility] Last Admin: 07/12/19 07:48 Dose: 600 mg Sodium Chloride (Normal Saline) 500 mls @ 500 mls/hr IV ONETIME ONE Stop: 07/11/19 11:29 Last Admin: 07/11/19 10:42 Dose: 500 mls/hr Lactated Ringer's (Ringers, Lactated) 1,000 mls @ 50 mls/hr IV ASDIRECTED [facility] Stop: 07/14/19 03:59 Last Admin: 07/13/19 08:30 Dose: 50 mls/hr Midazolam HCl (Versed 1 Mg/Ml) 2 mg IV .STK-MED ONE Stop: 07/13/19 09:09 Last Admin: 07/13/19 09:08 Dose: 2 mg Timolol Maleate (Timoptic 0.5% Ophth Soln) 0 ml EYEBOTH ASDIRECTED [facility] - Exam General: Alert, Oriented, Cooperative, Other (tearful) HEENT: Mucous Membr. Moist/[place] Neck: Supple Lungs: Clear to Auscultation, Normal Respiratory Effort Cardiovascular: Regular Rate, Regular Rhythm GI/Abdominal Exam: Normal Bowel Sounds, Soft, Tender (left upper quadrant, left lower quadrant) Extremities: Normal Inspection, No Pedal Edema Skin: Warm, Dry Neurological: No New Focal Deficit Psy/Mental Status: Anxious Sepsis Event Note - Evaluation Sepsis Screening Result: No Definite Risk - Focused Exam Vital Signs: Vital Signs Temp Pulse Resp BP Pulse Ox 07/14/19 16:00 98.2 F 72 16 128/62 97 07/14/19 07:13 97.9 F 78 18 145/53 H 97 Date Exam was Performed: 07/14/19 Time Exam was Performed: 18:35 - Problem List & Annotations (1) Abdominal pain SNOMED Code(s): 77438975 Code(s): R10.9 - UNSPECIFIED ABDOMINAL PAIN Status: Acute Priority: High Current Visit: Yes Qualifiers: Abdominal location: left lower quadrant Qualified Code(s): R10.32 - Left lower quadrant pain - Problem List Review Problem List Initiated/Reviewed/Updated: Yes - My Orders Last 24 Hours: My Active Orders 07/14/19 10:20 Ondansetron [Zofran ODT] 4 mg PO Q4H PRN - Assessment Assessment:: Abdominal Pain - Plan Plan:: This patient was admitted due to abdominal pain at home. Son and patient reports that he cries with severe abdominal pain that comes and goes. The patient reports that he has dry heaves. CT did show no acute changes. Gallbladder normal. No obstructive patterns. Diverticulosis, but no Diverticulitis. He has no fever, no wbc elevation, no crp elevation. Patient this morning reports that he has mild LLQ abdominal pain. He is unable to describe how it feels. He reports that he did have a BM this morning that he struggled to get out and was hard. The patient reports that he is scared to go home because of his abdominal pain. The patient son reports the patient drinks apple juice all the time. The patient does report that the pain in his abdomen is usually shortly after drinking apple juice or with eating. I have added a stool softner to this patient, Gas-X. I have also added NS 500ml Bolus due to mild 107 CH and mild BUN elevation. I have also made note the patient is to not have any apple juice. Will continue his admit. PCP to see tomorrow. Patient does live at home, son works a lot, but is involved in the patient plan of care and has been here with him almost the entire visit. Patient today was discussing possibly long term placement with RN. 07-12-2019 Patient admits to increased abdominal pain after eating this morning. Denies being always correlated with eating. No nausea. No vomiting. Does still complain of pain to the left upper and lower quadrant region. Is tender with palpation. Labs remain normal this am, WBC 3.8, CRP negative. Electrolytes, kidney function all normal. Did have CT scan this weekend which was normal as well. Afebrile Will transfer to acute. Plan for tentative EGD tomorrow. Start IV Protonix. Social service consult for vulnerable adult. Physical therapy for strengthening. 07-13-2019 Patient resting quietly this am. Is NPO for EGD this am. Admits to still having intermittent pain in the left side of his abdomen. Noted more burning with eating yesterday. Has had normal CT scan done other than a small hernia in the left lower quadrant, ultrasound was normal. Does feel that when he takes the Gas-X it helps. No nausea this am. No diarrhea. Afebrile. Labs have been normal. Will proceed with EGD. Continue IV Protonix. director outpatient services has discussed possible temporary long term placement for the patient for strengthening. Continue PT at present. 07-14-2019 Patient admits to more abdominal pain again this am. Had a good afternoon yesterday after his EGD but now states has gas pressure and discomfort again. Does not feel he can tolerate breakfast this am, is tearful. Had EGD yesterday which was normal. CT normal. Labs have been normal. Patient frustrated that "don't know what is wrong". He is tearful today. Feels legs are weaker than his usual. Does ambulate with walker and has long standing history of arthritis. Is currently on Gas X. Last BM was on Friday. CT does show small hernia, plans for Dr. Arnold to see patient when here next. No evidence of strangulation on CT. Will repeat labs in am. Plan is for patient to transfer to [facility] tomorrow. Will add Miralax for gastric motility/constipation as may be contributing to pain. Will monitor.
[2019-07-14] MEDS: Enoxaparin 40 MG/0.4 ML Syringe SUBCUT SCH (20:03)
[2019-07-15 07:28] LABS: CHLORIDE,CL 98 mEq/L (98-106); SODIUM,NA 134 mEq/L (136-145)
[2019-07-15] MEDS ORDERED: Bisacodyl 10 MG Supp RECTAL ONE (07:59)
[2019-07-15] MEDS: Cholecalciferol (Vitamin D3) 25 MCG Tab PO SCH (08:10)
[2019-07-15] MEDS: Aspirin 325 MG Tab.EC PO SCH (08:10)
[2019-07-15] MEDS: Ondansetron 4 MG Tab.DIS PO PRN (08:10)
[2019-07-15] MEDS: Pantoprazole 40 MG Vial IVPUSH SCH (08:10)
[2019-07-15] MEDS: Multivitamin Tab PO SCH (08:10)
[2019-07-15] MEDS: Calcium Carbonate/Vitamin D3 1250 MG-200 Unit Tab PO SCH (08:10)
[2019-07-15] MEDS: Gemfibrozil 600 MG Tab PO SCH (08:10)
[2019-07-15] MEDS: Polyethylene Glycol 3350 Powder 17 GM Packet PO SCH (08:10)
[2019-07-15] MEDS: Docusate Sodium 100 MG Cap PO SCH (08:10)
[2019-07-15] MEDS: Timolol Maleate 0.5% Ophth Soln 5 ML Bottle EYEBOTH SCH (08:11)
[2019-07-15 09:43] VITALS: BP 142/66; PULSE 68
--- NOTE | 2019-07-15 21:18 | PCM.DCSUM1 ---
Discharge Summary - Hospital Course Free Text/Narrative:: Genaro is an 84 year old male that presented to ER with complaints of ongoing abdominal pain. Was initially seen on Friday in clinic, had complete work up including a CT scan of the abdomen and pelvis, lab work. All was normal. Was given IV Morphine and IV fluids and discharged home. Returned back to ER as pain recurred. Has been having ongoing issues with this for several weeks now. Has seen Dr. Abernathy for this as well, had abdominal ultrasound that was negative. Abdominal pain does last several minutes, crampy in nature and is accompanied by nausea. Gets very emotional when the pain occurs per son. Has been consuming mostly liquids, high amounts of apple juice. No fevers. Repeat labs in ER all normal. Diagnosis: Stroke: No Modified Castor Scale: No Symptoms at All Modified Dieudonne Scale Score: 0 - Discharge Data Discharge Date: 07/15/19 Discharge Disposition: DC/Tfer to SNF 03 Condition: Fair - Referral to Home Health Primary Care Physician: Иван Plummer PA-C - Discharge Diagnosis/Problem(s) (1) Abdominal pain SNOMED Code(s): 93244802 ICD Code: R10.9 - UNSPECIFIED ABDOMINAL PAIN Status: Acute Priority: High Qualifiers: Abdominal location: left lower quadrant Qualified Code(s): R10.32 - Left lower quadrant pain - Patient Summary/Data Complications: none Consults: Consultations 07/12/19 08:19 Consult to Case Management/Occupational Rehabilitation Aide [CONS] Routine 07/12/19 09:03 Consult to Physical Therapy [PT Evaluation and Treatment] [CONS] Routine 07/12/19 17:40 Consult to Physician [CONS] Routine Hospital Course: Patient does continue to have bouts of abdominal discomfort. Ultimately has had ultrasounds which were normal, CT scan essentially normal. Did show small hernia in left lower quadrant, not strangulated. EGD was done, negative and patient did not tolerate well. Has periodic pain with nausea and retching. Gets tearful when occurs. Have had on Protonix. Started on Colace and Miralax as stools have been very small and hard. Complains of pain like a burning/ bloated feeling, does feel Gas-X helps when occurs. Does not want to eat when having the pain. Do plan for patient to see Dr. Arnold for consult on the hernia in 2 weeks when he returns to [place]. Labs done have remained normal through stay. Will continue with meds for constipation. Transfer to [facility]. Dr Abernathy will continue to follow. Receive strengthening rehab while there. - Patient Instructions Diet: Usual Diet as Tolerated Activity: As Tolerated - Discharge Plan *PRESCRIPTION DRUG MONITORING PROGRAM REVIEWED*: Not Applicable *COPY OF PRESCRIPTION DRUG MONITORING REPORT IN PATIENT MARCUS: Not Applicable Prescriptions/Med Rec: Docusate Sodium [Colace] 100 mg PO BID #60 cap Ondansetron [Zofran ODT] 4 mg PO Q4H PRN #30 tab.dis PRN Reason: Nausea/Vomiting polyethylene glycoL 3350 [MiraLAX] 17 gm PO DAILY #30 packet Simethicone 80 mg PO Q6H PRN #60 tab.chew PRN Reason: Abdominal Pain Home Medications: Home Meds Multivitamin [Multivitamins] 1 tab PO DAILY 11/11/18 [History] Timolol [Betimol] 1 drop EYEBOTH ASDIRECTED 11/11/18 [History] gemfibroziL [Gemfibrozil] 600 mg PO DAILY 11/11/18 [History] Aspirin 325 mg PO DAILY 07/09/19 [History] Aspirin 325 mg PO DAILY 07/10/19 [History] Calcium Carbonate/Vitamin D3 [Calcium 600 + Vit D Tablet] 1 tab PO DAILY [History] Cholecalciferol (Vitamin D3) [Vitamin D3] 1 cap PO DAILY 07/10/19 [History] Ondansetron [Zofran ODT] 1 tab SL Q4H PRN 07/10/19 [History] fentaNYL [Duragesic] 50 mcg TRDERM Q72H 07/10/19 [History] Docusate Sodium [Colace] 100 mg PO BID #60 cap 07/15/19 [Rx] Ondansetron [Zofran ODT] 4 mg PO Q4H PRN #30 tab.dis 07/15/19 [Rx] Simethicone 80 mg PO Q6H PRN #60 tab.chew 07/15/19 [Rx] polyethylene glycoL 3350 [MiraLAX] 17 gm PO DAILY #30 packet 07/15/19 [Rx] Forms: ED Department Discharge - Discharge Summary/Plan Comment DC Time >30 min.: Yes Discharge Summary/Plan Comment: Transfer to [facility] Time with patient and son 20 minutes Time for orders 15 minutes Time for documentation 10 minutes - General Info Date of Service: 07/15/19 Admission Dx/Problem (Free Text: Abdominal Pain Functional Status: Reports: Pain Controlled, Tolerating Diet, Ambulating - Review of Systems General: Reports: Weakness, Fatigue, Malaise HEENT: Reports: Rhinitis Pulmonary: Denies: Shortness of Breath, Cough Cardiovascular: Denies: Chest Pain, Edema, Lightheadedness Gastrointestinal: Reports: Abdominal Pain, Constipation, Nausea. Denies: Vomiting Genitourinary: Reports: No Symptoms Musculoskeletal: Reports: Joint Pain Skin: Reports: No Symptoms Neurological: Reports: Weakness Psychiatric: Reports: Depression, Anxiety - Patient Data Vitals - Most Recent: Last Vital Signs Temp 97.3 F 07/15/19 08:00 Pulse 68 07/15/19 08:00 Resp 18 07/15/19 08:00 BP 142/66 H 07/15/19 08:00 Pulse Ox 97 07/15/19 08:00 Weight - Most Recent: 140 lb 12.8 oz Lab Results - Last 24 hrs: Laboratory Results - last 24 hr 07/15/19 07/15/19 Range/Units 06:55 06:55 WBC 5.4 (5.0-10.0) 10^3/uL RBC 4.86 (4.50-6.00) 10^6/uL Hgb 14.8 (14.0-18.0) g/dL Hct 44.4 (40.0-54.0) % MCV 91.4 (82.0-94.0) fL MCH 30.5 (27.0-32.0) pg MCHC 33.3 (33.0-38.0) g/dL RDW Coeff of Cindy 13.4 (11.0-15.0) % Plt Count 277 (150-400) 10^3/uL Neut % (Auto) 60.3 (35-85) % Lymph % (Auto) 24.2 (10-55) % [place] % (Auto) 10.7 (0-16) % Eos % (Auto) 4.4 (0-5) % Baso % (Auto) 0.4 (0-3) % Neut # (Auto) 3.26 (1.80-7.00) 10^3/uL Lymph # (Auto) 1.31 (1.00-4.80) 10^3/uL [place] # (Auto) 0.58 (0.00-0.80) 10^3/uL Eos # (Auto) 0.24 (0.00-0.45) 10^3/uL Baso # (Auto) 0.02 10^3/uL Sodium 134 L (136-145) mEq/L Potassium 4.0 (3.5-5.0) mEq/L Chloride 98 (98-106) mEq/L Carbon Dioxide 27 (21-32) mmol/L BUN 17 (7-18) mg/dL Creatinine 1.0 (0.7-1.3) mg/dL Est Cr Clr Drug Dosing 48.79 mL/min Estimated GFR (MDRD) > 60 (>=60) mL/min Glucose 95 (75-99) mg/dL Calcium 9.6 (8.4-10.1) mg/dL C-Reactive Protein 3.9 H (0.2-0.8) mg/dL Med Orders - Current: Current Medications Discontinued Medications Aspirin (Ecotrin) 325 mg PO DAILY [facility] Last Admin: 07/15/19 08:10 Dose: 325 mg Benzocaine (Hurricaine 20% [place]) 1 ml MUCMEM .STK-MED ONE Stop: 07/13/19 08:58 Last Admin: 07/13/19 08:57 Dose: 1 ml Benzocaine (Hurricaine 20% [place]) 1 ml MUCMEM .STK-MED ONE Stop: 07/13/19 09:11 Last Admin: 07/13/19 09:10 Dose: 1 ml Bisacodyl (Dulcolax) 10 mg RECTAL ONETIME ONE Stop: 07/15/19 08:00 Last Admin: 07/15/19 08:21 Dose: 10 mg Calcium Carbonate (Calcium Carbonate/Vitamin D 1250 Mg-200 Unit) 1 tab PO DAILY [facility] Last Admin: 07/15/19 08:10 Dose: 1 tab Calcium Carbonate/Glycine (Tums) 1,000 mg PO QID PRN PRN Reason: Dyspepsia Last Admin: 07/14/19 14:41 Dose: 1,000 mg Cholecalciferol (Vitamin D3) 25 mcg PO DAILY [facility] Last Admin: 07/15/19 08:10 Dose: 25 mcg Docusate Sodium (Colace) 100 mg PO BID PRN PRN Reason: Constipation Last Admin: 07/11/19 10:43 Dose: 100 mg Docusate Sodium (Colace) 100 mg PO BID [facility] Last Admin: 07/15/19 08:10 Dose: 100 mg Enoxaparin Sodium (Lovenox) 40 mg SUBCUT Q24H [facility] Last Admin: 07/14/19 20:03 Dose: 40 mg Fentanyl (Duragesic) 50 mcg TRDERM Q72H [facility] Last Admin: 07/10/19 21:26 Dose: Not Given Fentanyl (Duragesic) 50 mcg TRDERM Q72H [facility] Last Admin: 07/12/19 10:59 Dose: Not Given Fentanyl (Duragesic) 50 mcg TRDERM Q72H [facility] Last Admin: 07/13/19 12:15 Dose: Not Given Fentanyl (Duragesic) 50 mcg TRDERM Q72H [facility] Last Admin: 07/13/19 12:14 Dose: Not Given Fentanyl (Duragesic) 50 mcg TRDERM Q72H [facility] Last Admin: 07/13/19 10:25 Dose: 50 mcg Gemfibrozil (Lopid) 600 mg PO DAILY [facility] Gemfibrozil (Lopid) 600 mg PO DAILY [facility] Last Admin: 07/12/19 07:48 Dose: 600 mg Gemfibrozil (Lopid) 600 mg PO DAILY [facility] Last Admin: 07/15/19 08:10 Dose: 600 mg Sodium Chloride (Normal Saline) 500 mls @ 500 mls/hr IV ONETIME ONE Stop: 07/11/19 11:29 Last Admin: 07/11/19 10:42 Dose: 500 mls/hr Lactated Ringer's (Ringers, Lactated) 1,000 mls @ 50 mls/hr IV ASDIRECTED [facility] Stop: 07/14/19 03:59 Last Admin: 07/13/19 08:30 Dose: 50 mls/hr Midazolam HCl (Versed 1 Mg/Ml) 2 mg IV .STK-MED ONE Stop: 07/13/19 09:09 Last Admin: 07/13/19 09:08 Dose: 2 mg Morphine Sulfate (Morphine) 2 mg IVPUSH Q2H PRN PRN Reason: Pain (severe 7-10) Multivitamins/Minerals/Vitamin C (Tab-A-John [place]) 1 tab PO DAILY [facility] Last Admin: 07/15/19 08:10 Dose: 1 tab Ondansetron HCl (Zofran) 4 mg IV Q6H PRN PRN Reason: Nausea/Vomiting Last Admin: 07/14/19 14:26 Dose: 4 mg Ondansetron HCl (Zofran Odt) 4 mg PO Q4H PRN PRN Reason: Nausea/Vomiting Last Admin: 07/15/19 08:10 Dose: 4 mg Pantoprazole Sodium (Protonix Iv) 40 mg IVPUSH Q24H [facility] Last Admin: 07/15/19 08:10 Dose: 40 mg Polyethylene Glycol (Miralax) 17 gm PO DAILY [facility] Last Admin: 07/15/19 08:10 Dose: 17 gm Simethicone (Simethicone) 80 mg PO Q6H PRN PRN Reason: Abdominal Pain Last Admin: 07/14/19 08:03 Dose: 80 mg Timolol Maleate (Timoptic 0.5% Ophth Soln) 0 ml EYEBOTH ASDIRECTED [facility] Timolol Maleate (Timoptic 0.5% Ophth Soln) 0 ml EYEBOTH DAILY [facility] Last Admin: 07/15/19 08:11 Dose: 1 drop - Exam General: Reports: Alert, Oriented HEENT: Reports: Mucous Membr. Moist/[place] Neck: Reports: Supple Lungs: Reports: Clear to Auscultation, Normal Respiratory Effort Cardiovascular: Reports: Regular Rate, Regular Rhythm GI/Abdominal Exam: Normal Bowel Sounds, Soft, Tender (left upper and lower quadrants) Extremities: Normal Inspection, No Pedal Edema Skin: Reports: Warm, Dry Neurological: Reports: No New Focal Deficit
== END 2019-07-15 10:10 | DRG 392 ==
LOC: CC.ED 19:05 → CC.MS 19:30 → UNDOADMOB 19:30 → CC.MS 19:31 → OBSVTOIN 07-12 08:51
PROVIDERS: ADMIT Nurse Practitioner; ATTEND Family Medicine
PROC: 0DJ08ZZ Inspection of Upper Intestinal Tract, Via Natural or Artificial Opening Endoscopic (ICD-10-PCS; principal; 2019-07-13)
DX: R10.84 Generalized abdominal pain (principal); R10.32 Left lower quadrant pain; E78.00 Pure hypercholesterolemia, unspecified; R00.0 Tachycardia, unspecified; R11.0 Nausea; K57.90 Diverticulosis of intestine, part unspecified, without perforation or abscess without bleeding; Z98.890 Other specified postprocedural states; Z88.0 Allergy status to penicillin; Z79.82 Long term (current) use of aspirin; Z79.899 Other long term (current) drug therapy
CPT/HCPCS: 36415; 43235; 80048; 80053; 85025; 86140; 97110-GP; 97161-GP; 97530-GP; 99285; A9270-GY; C9113; J1650; J2250; J2405; J7040; J7120